=== PATIENT | female | born 1955 | race Caucasian/White ===

== ENCOUNTER 2018-10-10 10:09 | Day surgery (SDC) | payer OTHER ==
[2018-10-10] MEDS ORDERED: LIDOCAINE 2% (SDV) 5 ML INJ (10:44)
[2018-10-10] MEDS ORDERED: PROPOFOL 40 ML (10:44)
[2018-10-10] MEDS ORDERED: ONDANSETRON 4 MG INJ IV (11:00)
== END 2018-10-10 13:27 | disposition home or self-care (01) ==
LOC: GIL 10:09
DX: Z12.11 Encounter for screening for malignant neoplasm of colon (principal); D12.4 Benign neoplasm of descending colon; K57.30 Diverticulosis of large intestine without perforation or abscess without bleeding; I10 Essential (primary) hypertension
CPT/HCPCS: 45380; 88305